=== PATIENT | female | born 1975 | race Caucasian/White ===

== ENCOUNTER 2016-12-28 18:08 | Emergency (ER) | payer OTHER ==
[~2016-12-28] VITALS: Ht 170.2 cm; Wt 84.0 kg
[~2016-12-28 18:08] MED LIST: CLEOCIN300 MG PO; Colace PO; FENOFIBRATE54 M1 PO; Feosol PO; HUMALOG SC; HUMALOG100 UNIT/1 SC; HUMULIN R100 UNITS/ IM; IBUPROFEN800 MG PO; INSULIN PUMP SCCONT; LEVEMIR FL100 UNITS/ SC; LEVEMIR100 UNIT/2 SC; LOVASTATIN20 MG PO; Levothroid,Synthroid PO; NOVOLOG PE100 UNITS/ SC; NovoLOG Pen 3 ml SC; PERCOCET 5/31 TABLET PO; Percocet 5/325,Endoc PO; RANITIDINE HCL150 MG PO; SYNTHROID PO; SYNTHROID150 MCG PO; SYNTHROID175 MCG PO; SYNTHROID200 MCG PO; SYNTHROID50 MCG PO
[2016-12-28] MEDS ORDERED: CLEOCIN300 MG PO (20:23)
[2016-12-28 20:28] VITALS: BP 109/74
== END 2016-12-28 20:28 | disposition home or self-care (01) ==
LOC: EME 18:08
DX: O99.612 Diseases of the digestive system complicating pregnancy, second trimester (principal); K04.7 Periapical abscess without sinus; K02.9 Dental caries, unspecified; O09.522 Supervision of elderly multigravida, second trimester; O24.312 Unspecified pre-existing diabetes mellitus in pregnancy, second trimester; E11.9 Type 2 diabetes mellitus without complications; O99.332 Smoking (tobacco) complicating pregnancy, second trimester; F17.200 Nicotine dependence, unspecified, uncomplicated; O99.282 Endocrine, nutritional and metabolic diseases complicating pregnancy, second trimester; E03.9 Hypothyroidism, unspecified; Z96.41 Presence of insulin pump (external) (internal); Z79.4 Long term (current) use of insulin; Z79.82 Long term (current) use of aspirin; Z3A.00 Weeks of gestation of pregnancy not specified
CPT/HCPCS: 99281; 99283

== ENCOUNTER → 2017-01-23 | Outpatient (CLI) | payer OTHER ==
[~2017-01-23] VITALS: Ht 170.2 cm; Wt 84.0 kg
[~2017-01-23] MED LIST changes: +ASPIRIN81 M2 PO; +PRENATAL TABLE1 EAC3 PO
[2017-01-23 10:34] VITALS: BP 119/68
== END | disposition home or self-care (01) ==
LOC: IVINF 10:29
DX: Z31.82 Encounter for Rh incompatibility status (principal)
CPT/HCPCS: 96372; J2790

== ENCOUNTER → 2017-02-05 | Outpatient (CLI) | payer OTHER | END | disposition home or self-care (01) | LOC: CDC 10:32 | DX: O09.529 Supervision of elderly multigravida, unspecified trimester (principal); E10.65 Type 1 diabetes mellitus with hyperglycemia; O09.90 Supervision of high risk pregnancy, unspecified, unspecified trimester | CPT/HCPCS: 93000 ==

== ENCOUNTER 2017-04-05 04:52 | Inpatient (IN) | payer OTHER ==
[~2017-04-05] VITALS: Ht 170.2 cm; Wt 87.1 kg
[2017-04-05] VITALS (8 sets, daily range): BP systolic 106–139; BP diastolic 58–81
[2017-04-05 05:49] LABS: EOSINOPHIL (%) 0.1 % (0-5); HEMATOCRIT 29.6 % (36.0-46.0); IMMATURE GRANULOCYTE COUNT 0.1 K/uL; INSTRUMENT ABS NEUTROPHIL CT 4.4 K/uL; LYMPHOCYTE COUNT 1.7 K/uL (1.0-2.8); MCH 31.4 PG (29.0-34.0); MCHC 34.5 G/DL (30.0-36.0); MEAN PLAT.VOLUME 11.4 uM^3 (9.5-12.4); MONOCYTE COUNT 0.5 K/uL (0-0.8); NEUTROPHIL (%) 65.8 % (45-76); NEUTROPHIL COUNT 4.4 K/uL (1.8-6.4); PLATELET COUNT 134 K/uL (156-360); RBC DIS.WIDTH-CV 12.2 % (11.8-14.6); RBC DIS.WIDTH-SD 40.2 % (39-53); RED BLOOD COUNT 3.25 M/uL (3.80-5.20); WHITE BLOOD COUNT 6.7 K/uL (4.1-10.2)
[2017-04-05 05:54] LABS: MCV 91.1 FL (83-99)
[2017-04-05 06:07] LABS: POINT-OF-CARE METER ID UU13113801
[2017-04-05 09:28] LABS: POINT-OF-CARE METER ID UU13113675
[2017-04-05 19:50] LABS: POINT-OF-CARE METER ID UU13113692
[2017-04-06 03:00] VITALS: BP 121/72
[2017-04-06 07:16] LABS: EOSINOPHIL (%) 0.1 % (0-5); HEMATOCRIT 30.4 % (36.0-46.0); IMMATURE GRANULOCYTE (%) 0.7 % (0.0-0.7); IMMATURE GRANULOCYTE COUNT 0.1 K/uL; INSTRUMENT ABS NEUTROPHIL CT 5.5 K/uL; LYMPHOCYTE COUNT 1.2 K/uL (1.0-2.8); MCH 30.6 PG (29.0-34.0); MCHC 33.2 G/DL (30.0-36.0); MCV 92.1 FL (83-99); MONOCYTE (%) 4.8 % (3-12); MONOCYTE COUNT 0.3 K/uL (0-0.8); NEUTROPHIL (%) 77.5 % (45-76); NEUTROPHIL COUNT 5.5 K/uL (1.8-6.4); PLATELET COUNT 148 K/uL (156-360); RBC DIS.WIDTH-CV 12.4 % (11.8-14.6); WHITE BLOOD COUNT 7.1 K/uL (4.1-10.2)
[2017-04-06 07:30] VITALS: BP 117/67
[2017-04-06 11:00] VITALS: BP 130/94
[2017-04-06 15:55] VITALS: BP 121/69
[2017-04-07 08:13] VITALS: BP 133/73
[2017-04-07 11:00] VITALS: BP 131/74
[2017-04-07 15:00] VITALS: BP 135/79
[2017-04-08 01:00] LABS: POINT-OF-CARE METER ID UU13113692
[2017-04-08 06:26] LABS: POINT-OF-CARE METER ID UU13113801
[2017-04-08 07:34] VITALS: BP 133/77
[2017-04-08] MEDS ORDERED: IBUPROFEN800 MG PO (08:54)
[2017-04-08] MEDS ORDERED: ENDOCET 5-3251 EACH PO (08:54)
== END 2017-04-08 10:29 | disposition home or self-care (01) | DRG 765 ==
LOC: 2WEST 04:52 → 2SOUTH 07:42 → 2WEST 04-08 10:29
PROVIDERS: Obstetrics & Gynecology
DX: O34.219 Maternal care for unspecified type scar from previous cesarean delivery (principal); O24.02 Pre-existing type 1 diabetes mellitus, in childbirth; E10.9 Type 1 diabetes mellitus without complications; O69.81X0 Labor and delivery complicated by cord around neck, without compression, not applicable or unspecified; Z37.0 Single live birth; Z96.41 Presence of insulin pump (external) (internal); Z79.4 Long term (current) use of insulin; O99.284 Endocrine, nutritional and metabolic diseases complicating childbirth; E03.9 Hypothyroidism, unspecified; E66.3 Overweight; Z68.28 Body mass index [BMI] 28.0-28.9, adult; O99.02 Anemia complicating childbirth; D50.9 Iron deficiency anemia, unspecified; O99.62 Diseases of the digestive system complicating childbirth; K21.9 Gastro-esophageal reflux disease without esophagitis; O99.334 Smoking (tobacco) complicating childbirth; F17.210 Nicotine dependence, cigarettes, uncomplicated; Z3A.39 39 weeks gestation of pregnancy; Z30.2 Encounter for sterilization
CPT/HCPCS: 82948; 83030; 85025; 86870; 86900; 86901; 86905; 86920; 88302; 88307; J0690; J1815; J2274; J2405; J2765; J2790; J3010; J7120

== ENCOUNTER 2018-01-17 20:27 | Emergency (ER) | payer OTHER ==
[~2018-01-17] VITALS: Ht 170.2 cm; Wt 77.2 kg
[~2018-01-17 20:27] MED LIST changes: +ENDOCET 5-3251 EACH PO
[2018-01-17 21:29] LABS: HEMATOCRIT 32.3 % (36.0-46.0); HEMOGLOBIN 10.8 G/DL (11.9-15.5); MCH 26.8 PG (29.0-34.0); MCHC 33.4 G/DL (30.0-36.0); MCV 80.1 FL (83-99); PLATELET COUNT 167 K/uL (156-360); RED BLOOD COUNT 4.03 M/uL (3.80-5.20); WHITE BLOOD COUNT 11.3 K/uL (4.1-10.2)
[2018-01-17] MEDS ORDERED: ZOFRAN ODT4 MG PO (21:29)
[2018-01-17] MEDS ORDERED: AUGMENTIN875 MG PO (21:29)
[2018-01-17 21:40] LABS: CHLORIDE 97 mEq/L (99-109); POTASSIUM 3.7 mEq/L (3.7-5.4); SODIUM 131 mEq/L (136-147)
[2018-01-17 21:41] LABS: GLUCOSE 260 mg/dL (70-99)
[2018-01-17 21:45] LABS: CREATININE 1.1 mg/dL (0.6-1.3); GFR ESTIMATE (CALCULATED) 58 mL/min/
[2018-01-17 21:46] LABS: UREA NITROGEN (BUN) 12 mg/dL (9-23)
[2018-01-17 21:54] LABS: QUANTITATIVE HCG < 4.0 MIU/ML
[2018-01-17 22:40] VITALS: BP 114/64
== END 2018-01-17 22:41 | disposition home or self-care (01) ==
LOC: EME 20:27
PROVIDERS: Nurse Practitioner Family
DX: J32.9 Chronic sinusitis, unspecified (principal); B34.9 Viral infection, unspecified; E11.9 Type 2 diabetes mellitus without complications; Z79.4 Long term (current) use of insulin; F17.200 Nicotine dependence, unspecified, uncomplicated; E03.9 Hypothyroidism, unspecified
CPT/HCPCS: 80048; 84702; 85027; 99281; 99284; J2405; J7030

== ENCOUNTER 2018-01-19 18:34 | Inpatient (IN) | payer OTHER ==
[~2018-01-19] VITALS: Ht 170.2 cm; Wt 74.2 kg
[~2018-01-19 18:34] MED LIST changes: +AUGMENTIN875 MG PO; +ZOFRAN ODT4 MG PO
[2018-01-19 19:14] LABS: HEMOGLOBIN 11.4 G/DL (11.9-15.5); MCH 26.6 PG (29.0-34.0); MCHC 31.7 G/DL (30.0-36.0); MCV 83.9 FL (83-99); RED BLOOD COUNT 4.29 M/uL (3.80-5.20); WHITE BLOOD COUNT 14.9 K/uL (4.1-10.2)
[2018-01-19 19:21] LABS: PLATELET COUNT 280 K/uL (156-360)
[2018-01-19 19:24] LABS: ALBUMIN 3.8 g/dL (3.2-4.8); CHLORIDE 98 mEq/L (99-109); SODIUM 130 mEq/L (136-147)
[2018-01-19 19:26] LABS: GLUCOSE 337 mg/dL (70-99)
[2018-01-19 19:28] LABS: TOTAL BILIRUBIN 0.5 mg/dL (0.0-1.0)
[2018-01-19 19:29] LABS: ALKALINE PHOSPHATASE 120 IU/L (3-129)
[2018-01-19 19:30] LABS: CREATININE 1.4 mg/dL (0.6-1.3); GFR ESTIMATE (CALCULATED) 44 mL/min/
[2018-01-19 19:31] LABS: AST (GOT) 11 IU/L (2-34); UREA NITROGEN (BUN) 17 mg/dL (9-23)
[2018-01-19 19:33] LABS: ALT (GPT) 21 IU/L (3-49); LIPASE 7 U/L (1.0-51.0)
[2018-01-19 19:34] LABS: POTASSIUM 5.1 mEq/L (3.7-5.4)
[2018-01-19 19:42] LABS: QUANTITATIVE HCG < 4.0 MIU/ML
[2018-01-19 19:53] LABS: APPEARANCE SL.HAZY ((CLEAR)); BILIRUBIN NEGATIVE; BLOOD LARGE; COLOR YELLOW ((YELLOW)); GLUCOSE (STRIP) >=500; KETONES 80; LEUKOCYTES NEGATIVE; NITRITE NEGATIVE; PROTEIN (STRIP) 100; UROBILINOGEN 0.2 MG/DL (0.2-1.0)
[2018-01-19 20:28] LABS: BACTERIA NONE SEEN /HPF; EPITHELIAL CELLS RARE /HPF; MUCUS NONE SEEN /LPF; RED BLOOD CELLS TNTC /HPF (0-5); UCUL ADDED? YES; WHITE BLOOD CELLS RARE /HPF (0-5)
[2018-01-19 22:53] LABS: CHLORIDE 104 mEq/L (99-109); POTASSIUM 5.2 mEq/L (3.7-5.4); SODIUM 133 mEq/L (136-147)
[2018-01-19 22:55] LABS: GLUCOSE 339 mg/dL (70-99)
[2018-01-19 22:59] LABS: CREATININE 1.5 mg/dL (0.6-1.3); GFR ESTIMATE (CALCULATED) 41 mL/min/; UREA NITROGEN (BUN) 19 mg/dL (9-23)
[2018-01-20] VITALS (24 sets, daily range): BP systolic 14–151; BP diastolic 57–90
[2018-01-20 00:40] LABS: CHLORIDE 104 mEq/L (99-109); POTASSIUM 5.7 mEq/L (3.7-5.4); SODIUM 133 mEq/L (136-147)
[2018-01-20 00:41] LABS: GLUCOSE 355 mg/dL (70-99)
[2018-01-20 00:45] LABS: CREATININE 1.4 mg/dL (0.6-1.3); GFR ESTIMATE (CALCULATED) 44 mL/min/; PHOSPHORUS 2.7 mg/dL (2.5-4.9)
[2018-01-20 00:46] LABS: UREA NITROGEN (BUN) 20 mg/dL (9-23)
[2018-01-20 00:58] LABS: COMMENTS - BLOOD GASES A+C+; FI02 21 %; SITE LR; TOTAL RESP RATE 30 resp/min
[2018-01-20 00:59] LABS: BASE EXCESS -23.7 mEq/L (-3 to +3); BICARBONATE 3.3 mEq/L (22-26); CARBOXY HGB 1.2 % (0-5); METHEMOGLOBIN 0.7 % (0-1.5); PCO2 10 mm Hg (35-45); PO2 131 mm Hg (80-100); pH 7.12 (7.35-7.45)
[2018-01-20 05:20] LABS: CHLORIDE 108 mEq/L (99-109); SODIUM 137 mEq/L (136-147)
[2018-01-20 05:21] LABS: GLUCOSE 294 mg/dL (70-99); POTASSIUM 4.5 mEq/L (3.7-5.4)
[2018-01-20 05:25] LABS: CREATININE 1.2 mg/dL (0.6-1.3); GFR ESTIMATE (CALCULATED) 53 mL/min/
[2018-01-20 05:26] LABS: UREA NITROGEN (BUN) 19 mg/dL (9-23)
[2018-01-20 05:28] LABS: PHOSPHORUS > 1.0 mg/dL (2.5-4.9)
[2018-01-20 08:28] LABS: CHLORIDE 108 MEQ/L (99-109); CREATININE 0.9 MG/DL (0.6-1.3); GFR ESTIMATE (CALCULATED) > 59 mL/min/; GLUCOSE 197 mg/dL (70-99); POTASSIUM 4.1 MEQ/L (3.7-5.4); SODIUM 136 MEQ/L (136-147); UREA NITROGEN (BUN) 17 mg/dL (9-23)
[2018-01-20 08:33] LABS: PHOSPHORUS < 1.0 mg/dL (2.5-4.9)
[2018-01-20 12:39] LABS: CHLORIDE 108 MEQ/L (99-109); CREATININE 0.8 MG/DL (0.6-1.3); GFR ESTIMATE (CALCULATED) > 59 mL/min/; GLUCOSE 178 mg/dL (70-99); PHOSPHORUS 1.2 mg/dL (2.5-4.9); POTASSIUM 3.9 MEQ/L (3.7-5.4); SODIUM 137 MEQ/L (136-147); UREA NITROGEN (BUN) 16 mg/dL (9-23)
[2018-01-20 13:08] LABS: HEMOGLOBIN A1c (GLYCOHEMOGLOB) 6.5 % (Below 5.7)
[2018-01-20] MEDS ORDERED: NAPROXEN500 MG PO (15:15)
[2018-01-20] MEDS ORDERED: LOVASTATIN20 MG PO (15:16)
[2018-01-20] MEDS ORDERED: ONDANSETRON ODT4 MG PO (15:16)
[2018-01-20] MEDS ORDERED: RANITIDINE HCL150 MG PO (15:16)
[2018-01-20] MEDS ORDERED: FLONASE16 G1 BOTH NARES (15:17)
[2018-01-20] MEDS ORDERED: FENOFIBRATE145 M1 PO (15:17)
[2018-01-20 16:18] LABS: CHLORIDE 108 MEQ/L (99-109); CREATININE 0.7 MG/DL (0.6-1.3); GFR ESTIMATE (CALCULATED) > 59 mL/min/; PHOSPHORUS 1.5 mg/dL (2.5-4.9); SODIUM 135 MEQ/L (136-147); UREA NITROGEN (BUN) 15 mg/dL (9-23)
[2018-01-20 16:19] LABS: GLUCOSE 115 mg/dL (70-99)
[2018-01-20 20:32] LABS: CHLORIDE 108 MEQ/L (99-109); CREATININE 0.7 MG/DL (0.6-1.3); GFR ESTIMATE (CALCULATED) > 59 mL/min/; GLUCOSE 172 mg/dL (70-99); SODIUM 136 MEQ/L (136-147); UREA NITROGEN (BUN) 13 mg/dL (9-23)
[2018-01-20 20:33] LABS: PHOSPHORUS < 1.0 mg/dL (2.5-4.9); POTASSIUM 3.3 MEQ/L (3.7-5.4)
[2018-01-20 22:13] LABS: CHLORIDE 106 mEq/L (99-109); POTASSIUM 3.2 mEq/L (3.7-5.4); SODIUM 135 mEq/L (136-147)
[2018-01-20 22:15] LABS: GLUCOSE 171 mg/dL (70-99)
[2018-01-20 22:19] LABS: CREATININE 0.8 mg/dL (0.6-1.3); GFR ESTIMATE (CALCULATED) > 59 mL/min/
[2018-01-20 22:20] LABS: UREA NITROGEN (BUN) 12 mg/dL (9-23)
[2018-01-21] VITALS (17 sets, daily range): BP systolic 120–150; BP diastolic 69–93
[2018-01-21 02:17] LABS: CHLORIDE 108 mEq/L (99-109); POTASSIUM 3.3 mEq/L (3.7-5.4); SODIUM 135 mEq/L (136-147)
[2018-01-21 02:19] LABS: GLUCOSE 114 mg/dL (70-99)
[2018-01-21 02:22] LABS: CREATININE 0.7 mg/dL (0.6-1.3); GFR ESTIMATE (CALCULATED) > 59 mL/min/
[2018-01-21 02:23] LABS: UREA NITROGEN (BUN) 11 mg/dL (9-23)
[2018-01-22 07:39] VITALS: BP 121/65
[2018-01-22 16:45] VITALS: BP 123/86
[2018-01-22 23:36] LABS: CHLORIDE 104 mEq/L (99-109); POTASSIUM 3.6 mEq/L (3.7-5.4); SODIUM 139 mEq/L (136-147)
[2018-01-22 23:40] LABS: GLUCOSE 182 mg/dL (70-99)
[2018-01-22 23:41] LABS: CREATININE 0.8 mg/dL (0.6-1.3); GFR ESTIMATE (CALCULATED) > 59 mL/min/
[2018-01-22 23:42] LABS: UREA NITROGEN (BUN) 6 mg/dL (9-23)
[2018-01-23] VITALS: BP 116/65
[2018-01-23 06:56] LABS: BASOPHIL (%) 0.3 % (0-1); EOSINOPHIL (%) 0.7 % (0-5); HEMATOCRIT 27.1 % (36.0-46.0); IMMATURE GRANULOCYTE (%) 4.1 % (0.0-0.7); LYMPHOCYTE COUNT 1.5 K/uL (1.0-2.8); MCH 25.8 PG (29.0-34.0); MCHC 31.4 G/DL (30.0-36.0); MCV 82.4 FL (83-99); MONOCYTE (%) 7.7 % (3-12); MONOCYTE COUNT 0.5 K/uL (0-0.8); NEUTROPHIL (%) 62.2 % (45-76); NEUTROPHIL COUNT 3.8 K/uL (1.8-6.4); WHITE BLOOD COUNT 6.1 K/uL (4.1-10.2)
[2018-01-23 06:58] LABS: HEMOGLOBIN 8.5 G/DL (11.9-15.5); RED BLOOD COUNT 3.29 M/uL (3.80-5.20)
[2018-01-23 07:26] LABS: PHOSPHORUS 2.5 mg/dL (2.5-4.9)
[2018-01-23 07:37] LABS: ABS NEUTROPHIL COUNT 4.6; ANISOCYTOSIS 2+; BAND NEUTROPHILS 3.6 % (0-8.0); EOSINOPHIL ABS CT 0; GIANT PLATELETS 1+; HYPOCHROMASIA 2+; LYMPHOCYTES 16.2 % (15.0-45.0); MACROCYTES 1+; METAMYELOCYTES 0.9 %; MICROCYTOSIS 1+; MONOCYTES 8.1 % (0-9.0); OVALOCYTES 1+; POIKILOCYTOSIS 3+; SEG.NEUTROPHILS 71.2 % (46.0-76.0); SPHEROCYTES 1+; TARGET CELLS 2+; TEAR DROP CELLS 1+; TOXIC GRANULATION 1+
[2018-01-23 07:41] LABS: PLATELET COUNT ND K/uL (156-360)
[2018-01-23 08:20] VITALS: BP 122/61
[2018-01-23 08:27] LABS: CHLORIDE 106 MEQ/L (99-109); CREATININE 0.7 MG/DL (0.6-1.3); GFR ESTIMATE (CALCULATED) > 59 mL/min/; GLUCOSE 55 mg/dL (70-99); POTASSIUM 3.4 MEQ/L (3.7-5.4); SODIUM 142 MEQ/L (136-147); UREA NITROGEN (BUN) 6 mg/dL (9-23)
[2018-01-23 15:51] VITALS: BP 135/73
[2018-01-23 22:55] VITALS: BP 123/69
[2018-01-24 07:21] VITALS: BP 126/71
[2018-01-24 15:30] VITALS: BP 120/65; BP 137/78
[2018-01-24 23:12] VITALS: BP 142/77
[2018-01-25 00:12] LABS: CHLORIDE 105 mEq/L (99-109); POTASSIUM 3.8 mEq/L (3.7-5.4); SODIUM 140 mEq/L (136-147)
[2018-01-25 00:16] LABS: GLUCOSE 88 mg/dL (70-99)
[2018-01-25 00:17] LABS: CREATININE 0.8 mg/dL (0.6-1.3); GFR ESTIMATE (CALCULATED) > 59 mL/min/
[2018-01-25 00:18] LABS: UREA NITROGEN (BUN) 8 mg/dL (9-23)
[2018-01-25 07:10] VITALS: BP 145/81
[2018-01-25] MEDS ORDERED: CIPROFLOXACIN500 M1 PO (11:41)
== END 2018-01-25 13:31 | disposition home or self-care (01) | DRG 638 ==
LOC: EME 18:34 → EDOF 22:37 → 4WEST 22:37 → ENRESERV 22:47 → 4WEST 23:14 → ENRESERV 01-21 15:57 → 5EAST 01-21 18:31
PROVIDERS: Emergency Medicine Emergency Medical Services; Hospitalist; Internal Medicine; Surgery
DX: E10.10 Type 1 diabetes mellitus with ketoacidosis without coma (principal); N17.9 Acute kidney failure, unspecified; R78.81 Bacteremia; N39.0 Urinary tract infection, site not specified; B96.20 Unspecified Escherichia coli [E. coli] as the cause of diseases classified elsewhere; E86.0 Dehydration; J01.90 Acute sinusitis, unspecified; D64.9 Anemia, unspecified; E03.9 Hypothyroidism, unspecified; K21.9 Gastro-esophageal reflux disease without esophagitis; Z96.41 Presence of insulin pump (external) (internal); F17.210 Nicotine dependence, cigarettes, uncomplicated
CPT/HCPCS: 36600; 74176; 76770; 80048; 80048 91; 80053; 81003; 82010; 82803; 82948; 83036; 83605; 83690; 84100; 84702; 85025; 85027; 87040; 87077; 87086; 87186; 87641; 87801; 99281; 99284; 99285; J0696; J0780; J1644; J1815; J2405; J2543; J3010; J7030; J7040; J7050; S0028